=== PATIENT | female | born 1980 | race American Indian/Alaskan Native ===

== ENCOUNTER 2017-10-29 09:35 | Outpatient (CLI) | payer OTHER ==
--- NOTE | 2017-10-29 13:55 | XRay Report ---
XRAY RIGHT HAND THREE VIEWS: 10/29/17 09:35:00 CLINICAL: Right hand pain. FINDINGS: Avulsion fracture of the lateral corner at the base of the distal phalanx of the ring finger. Mild displacement of the fracture fragment. No other fracture. No foreign body or soft tissue air. The joint spaces are normal. IMPRESSION: Acute traumatic closed avulsion fracture at the base of the distal phalanx of the ring finger.
== END 2017-10-29 09:36 | disposition home or self-care (01) ==
LOC: SPVIMAG 09:35
PROVIDERS: ATTEND Orthopaedic Surgery Sports Medicine
DX: S62.634A Displaced fracture of distal phalanx of right ring finger, initial encounter for closed fracture (principal); X58.XXXA Exposure to other specified factors, initial encounter; Y93.89 Activity, other specified; Y92.89 Other specified places as the place of occurrence of the external cause; Y99.8 Other external cause status

== ENCOUNTER 2017-11-29 08:29 | Outpatient (CLI) | payer OTHER ==
--- NOTE | 2017-11-29 09:34 | XRay Report ---
Right hand: Pain. There is a slightly displaced avulsion fracture at the base on the ulnar side of the distal fourth phalanx. The remainder of the hand is unremarkable. Comparison to the prior exam of October 29 shows no significant change or evidence of healing. Impression: Fourth digit fracture with no interval change.
== END 2017-11-29 08:30 | disposition home or self-care (01) ==
LOC: SPVIMAG 08:29
PROVIDERS: ATTEND Orthopaedic Surgery Sports Medicine
DX: S52.691D Other fracture of lower end of right ulna, subsequent encounter for closed fracture with routine healing (principal); X58.XXXD Exposure to other specified factors, subsequent encounter

== ENCOUNTER 2018-01-09 09:27 | Outpatient (CLI) | payer OTHER ==
--- NOTE | 2018-01-09 10:09 | XRay Report ---
XRAY RIGHT HAND THREE VIEWS: 01/09/18 09:27:00 CLINICAL: Followup fracture. FINDINGS: A stable displaced avulsion fracture of the medial corner of the distal phalanx of the ring finger. The previous report incorrectly states that the fracture involves the lateral corner. No callus. The rest of the exam is unremarkable. IMPRESSION: No change. Chronic traumatic closed displaced avulsion fracture of the medial corner at the base of the distal phalanx of the ring finger.
== END 2018-01-09 09:28 | disposition home or self-care (01) ==
LOC: SPVIMAG 09:27
PROVIDERS: ATTEND Orthopaedic Surgery Sports Medicine
DX: S62.634A Displaced fracture of distal phalanx of right ring finger, initial encounter for closed fracture (principal); X58.XXXA Exposure to other specified factors, initial encounter; Y93.89 Activity, other specified; Y92.89 Other specified places as the place of occurrence of the external cause; Y99.8 Other external cause status

== ENCOUNTER 2019-11-06 10:45 | Outpatient (CLI) | payer OTHER ==
[2019-11-06 11:10] VITALS: BP 105/72
[2019-11-06] MEDS ORDERED: LACTATED RINGERS 1,000 ML IV SCH (12:00)
[2019-11-06] MEDS ORDERED: ACETAMINOPHEN 500 MG TAB PO ONE (12:07)
[2019-11-06 12:20] LABS: Bilirubin,Urine NEG (Negative); Blood,Urine NEG (Negative); Color,Urine Yellow (Yellow); Mucus,Urine FEW /HPF; Protein,Urine <15 mg/dL mg/dL (Negative); Urobilinogen,Urine < 2.0 mg/dL (<2.0)
--- NOTE | 2019-11-06 13:53 | Ultrasound Report ---
ULTRASOUND OBSTETRIC LIMITED INDICATION / CLINICAL INFORMATION: labor. TECHNIQUE: Transabdominal ultrasound imaging. COMPARISON: None available. FINDINGS: HEART RATE (beats per minute): 152 AMNIOTIC FLUID INDEX (cm) = 7.1 PRESENTATION: Cephalic. ADDITIONAL FINDINGS: The placenta is anterior, grade 2. No evidence for abruption or previa. IMPRESSION: No significant abnormality. Signer Name: Jaya Balderas Jr, MD Signed: 11/06/2019 1:49 PM Workstation Name: [id number]
== END 2019-11-06 16:19 | disposition home or self-care (01) ==
LOC: TRG 10:45
PROVIDERS: ATTEND Obstetrics & Gynecology
DX: O26.893 Other specified pregnancy related conditions, third trimester (principal); R10.31 Right lower quadrant pain; M54.5 Low back pain; M54.2 Cervicalgia; M25.519 Pain in unspecified shoulder; O60.03 Preterm labor without delivery, third trimester; O09.523 Supervision of elderly multigravida, third trimester; O24.419 Gestational diabetes mellitus in pregnancy, unspecified control; O99.513 Diseases of the respiratory system complicating pregnancy, third trimester; J45.909 Unspecified asthma, uncomplicated; Z3A.35 35 weeks gestation of pregnancy; V43.52XA Car driver injured in collision with other type car in traffic accident, initial encounter; Y93.89 Activity, other specified; Y92.89 Other specified places as the place of occurrence of the external cause; Y99.8 Other external cause status
CPT/HCPCS: 59025; 76815; 81001; 96360; 96361; J7120

== ENCOUNTER 2019-11-18 04:52 | Outpatient (CLI) | payer OTHER ==
[2019-11-18 05:15] VITALS: BP 107/68
[2019-11-18] MEDS ORDERED: LACTATED RINGERS 1,000 ML IV ONE (05:15)
[2019-11-18 05:53] LABS: Bacteria,Urine 1+ /HPF (Negative); Bilirubin,Urine NEG (Negative); Blood,Urine NEG (Negative); Color,Urine Yellow (Yellow); Mucus,Urine FEW /HPF; Protein,Urine <15 mg/dL mg/dL (Negative); Urobilinogen,Urine < 2.0 mg/dL (<2.0)
== END 2019-11-18 06:50 | disposition home or self-care (01) ==
LOC: TRG 04:52
PROVIDERS: ATTEND Obstetrics & Gynecology
DX: O62.9 Abnormality of forces of labor, unspecified (principal); O26.853 Spotting complicating pregnancy, third trimester; O99.513 Diseases of the respiratory system complicating pregnancy, third trimester; J45.909 Unspecified asthma, uncomplicated; O24.419 Gestational diabetes mellitus in pregnancy, unspecified control; O09.523 Supervision of elderly multigravida, third trimester; Z3A.36 36 weeks gestation of pregnancy
CPT/HCPCS: 59025; 81001; 96360; J7120

== ENCOUNTER 2019-11-18 19:14 | Inpatient (IN) | payer OTHER ==
[2019-11-18] MEDS ORDERED: TERBUTALINE 1 MG/1 ML INJ IVP PRN (22:36)
[2019-11-18] MEDS ORDERED: AMPICILLIN/NS 2 GM/100 ML 2 GM/100 ML BAG IV ONE (22:36)
[2019-11-18] MEDS ORDERED: TERBUTALINE 1 MG/1 ML INJ SUB-Q PRN (22:36)
[2019-11-18] MEDS ORDERED: ePHEDrine SULFATE 50 MG/1 ML INJ IV PRN (22:36)
[2019-11-18] MEDS ORDERED: DINOPROSTONE 10 MG VAG SUPP VG ONE (22:36)
[2019-11-18] MEDS ORDERED: MINERAL OIL 30 ML ORAL LIQD PO PRN (22:36)
--- NOTE | 2019-11-18 22:44 | History and Physical Report ---
History of Present Illness Date of examination: 11/18/19 (Sent from [facility] clinic for IOL dt low fluid) Date of admission: 11/18/19 19:16 Chief complaint: I was sent from the clinic today for an induction because they say the fluid around my baby is low. History of present illness: EDC Calculations LMP: 12/10/2019 EDC Confirmation: 12/10/2019 Gestational Age: 5 weeks Past History : 5 Term Births: 4 Premature Births: 0 Living Children: 4 Para: 4 Mult. Births: 0 Prev : 0 Aborta: 0 Elect. Ab: 0 Spont. Ab: 0 Ectopics: 0 Past Medical History: Reviewed history from 12/25/2011 and no changes required: Negative Past Medical History Past Surgical History: Reviewed history from 07/02/2016 and no changes required: 2 epidural steroids 2015 for injury Past Medical History Abnormal PAP: negative BRIANA Exposure: negative Infertility: negative Uterine Anomaly: negative Uterine Surgery (not C/S): negative Other Gynecologic Problems: negative Social Hx: Patient is Pt states she has sex only once or twice a year. Smoking History: Patient has never smoked. Infection History Hx of STD: chlamydia HIV Risk Eval: low risk Hepatitis B Risk Eval: low risk Personal hx. of genital herpes: no Partner hx. of genital herpes: no Rash, Viral, or Febrile illness since last LMP? no Varicella/Chicken Pox Status: Previous Disease TB Risk: no Genetic History ADVANCED MATERNAL AGE Congenital Heart Defect: Mom: no Dad: unknown Clyde Disease: Mom: no Dad: unknown Thalassemia Mom: no Dad: unknown Neural Tube Defect Mom: no Dad: unknown Down's Syndrome Mom: no Dad: unknown Michael-Sachs Mom: no Dad: unknown Sickle Cell Disease/Trait Mom: no Dad: unknown Hemophilia Mom: no Dad: unknown Muscular Dystrophy Mom: no Dad: unknown Cystic Fibrosis Mom: no Dad: unknown [place] Chorea Mom: no Dad: unknown Mental Retardation Mom: no Dad: unknown Fragile X Mom: no Dad: unknown Other Genetic/Chromosomal Disorder Mom: no Dad: unknown Child w/other defect Mom: no Dad: unknown Comments/Counseling: Pt states FOB is much older and to her knowledge has never fathered a child Enviromental Exposures Xray Exposure: no Medication, drug, or alcohol use since LMP: no Chemical/Other Exposure: no Exposure to Cat Liter: no Hx of Parvovirus (Fifth Disease): no Occupational Exposure to Children: none Active Medications (reviewed today): PROBIOTICS () CALCIUM TABS () VITAMIN D TABS () Current Allergies (reviewed today): AMOXICILLIN (Critical) Past History Past Medical History: no pertinent history Past Surgical History: no surgical history Family/Genetic History: none Social history: no significant social history - Obstetrical History Expected Date of Delivery: 12/10/19 Actual Gestation: 37 Week(s) 0 Day(s) : 5 Para: 4 Hx # Term Pregnancies: 4 Number of Pregnancies: 0 Spontaneous Abortions: 0 Induced : 0 Number of Living Children: 4 Medications and Allergies Allergies Allergy/AdvReac Type Severity Reaction Status Date / Time amoxicillin AdvReac Severe Hives Verified 11/18/19 04:57 Active Meds: Active Medications Dinoprostone (Cervidil) 10 mg VG ONCE ONE Stop: 11/18/19 22:37 Ephedrine Sulfate (Ephedrine Sulfate) 10 mg IV Q2M PRN PRN Reason: Hypotension Fentanyl (Sublimaze) 100 mcg IV Q2H PRN PRN Reason: Labor Pain Oxytocin/Sodium Chloride (Pitocin/Ns 20 Unit/1000ml Drip) 20 units in 1,000 mls @ 125 mls/hr IV DIRECT CHANO Lactated Ringer's (Lactated Ringers) 1,000 mls @ 125 mls/hr IV DIRECT CHANO Ampicillin Sodium (Ampicillin/Ns 2 Gm/100 Ml) 2 gm in 100 mls @ 100 mls/hr IV ONCE ONE; Protocol Stop: 11/18/19 23:35 Ampicillin Sodium (Ampicillin/Ns 1 Gm/50 Ml) 1 gm in 50 mls @ 100 mls/hr IV Q4HR CHANO; Protocol Mineral Oil (Mineral Oil) 30 ml PO QHS PRN PRN Reason: Constipation Terbutaline Sulfate (Brethine) 0.25 mg SUB-Q ONCE PRN PRN Reason: Hyperstimulation/Hypertonicity Terbutaline Sulfate (Brethine) 0.25 mg IVP ONCE PRN PRN Reason: Hyperstimulation/Hypertonicity - Vital Signs Vital signs: Vital Signs Temp Resp 98.7 F 18 11/18/19 20:31 11/18/19 20:31 Temp Pulse Resp BP Pulse Ox 98.7 F 77 18 111/73 11/18/19 20:31 11/18/19 22:01 11/18/19 20:31 11/18/19 22:01 - Physical Exam Breasts: Positive: deferred Cardiovascular: Regular rate, Normal S1, Normal S2 Lungs: Positive: Normal air movement Abdomen: Positive: normal appearance Genitourinary (Female): Positive: normal external genitalia, normal perenium Vulva: both: normal Vagina: Positive: normal moisture Uterus: Positive: normal size, normal contour Anus/Rectum: Positive: normal perianal skin, heme negative. Negative: rectal mass, hemorrhoids Extremities: Deep Tendon Reflex Grade: Normal +2 - Obstetrical FHR: auscultation normal Uterine Contraction Monitor Mode: External Cervical Dilatation: 1 Cervical Effacement Percentage: 40 station: -3 Uterine Contraction Pattern: Irregular Uterine Tone Measurement Phase: Resting Uterine Contraction Intensity: Mild Results Result Diagrams: 11/18/19 20:52 All other labs normal. GBS Positive HBsAg Screen Negative Negative *1 RPR Non Reactive Non Reactive *2 Rubella Antibodies, IgG 1.83 index Immune >0.99 *3 Non-immune <0.90 Equivocal 0.90 - 0.99 Immune >0.99 ABO Grouping O *4 Rh Factor Positive *5 Please note: Prior records for this patient's ABO / Rh type are not available for additional verification. Antibody Screen Negative Negative *6 WBC [H] 13.9 x10E3/uL 3.4-10.8 *7 RBC 4.34 x10E6/uL 3.77-5.28 *8 Hemoglobin 13.0 g/dL 11.1-15.9 *9 Hematocrit 40.0 % 34.0-46.6 *10 MCV 92 fL 79-97 *11 MCH 30.0 pg 26.6-33.0 *12 MCHC 32.5 g/dL 31.5-35.7 *13 RDW 14.1 % 12.3-15.4 *14 Platelets 294 x10E3/uL 150-450 *15 Neutrophils 76 % Not Estab. *16 Lymphs 19 % Not Estab. *17 Monocytes 4 % Not Estab. *18 Eos 1 % Not Estab. *19 Basos 0 % Not Estab. *20 ! Immature Cells <No Reported Value> *21 Neutrophils (Absolute) [H] 10.7 x10E3/uL 1.4-7.0 *22 Lymphs (Absolute) 2.6 x10E3/uL 0.7-3.1 *23 Monocytes(Absolute) 0.5 x10E3/uL 0.1-0.9 *24 Eos (Absolute) 0.1 x10E3/uL 0.0-0.4 *25 Baso (Absolute) 0.0 x10E3/uL 0.0-0.2 *26 ! Immature Granulocytes 0 % Not Estab. *27 ! Immature Grans (Abs) 0.0 x10E3/uL 0.0-0.1 *28 ! NRBC <No Reported Value> *29 Hematology Comments: Note: *30 Verified by microscopic examination. Tests: (2) Panel 257132 ([id number]) HIV Screen 4th Generation wRfx Non Reactive Non Reactive *31 Tests: (3) HCV Ab w/Rflx to Verification (000280) ! HCV Ab <0.1 s/co ratio 0.0-0.9 *32 Tests: (4) Comment: (803175) ! Comment: SPRCS *33 Non reactive HCV antibody screen is consistent with no HCV infection, unless recent infection is suspected or other evidence exists to indicate HCV infection. Tests: (5) Urine Culture, Routine (812029) Urine Culture, Routine Final report *34 Tests: (6) Result (172170) ! Result 1 No growth *35 Assessment and Plan A: 39 y.o. @ 37 wks sent from high risk clinic d/t Oligohydraminos. GBS positive. P: Admit to L&D for IOL. Clindamycin (pt allergic to amoxicillin) for GBS prophylaxis when in active labor. Check blood glucose q 6 hrs. Insulin (low dose) and hypoglycemia protocol. Cervidil placement for cervical ripening. Plan discussed with Dr. Morales.
[2019-11-18] MEDS ORDERED: OXYTOCIN 20 UNIT/1000ML DRIP 20 UNITS/1,000 ML BAG IV SCH (23:00)
[2019-11-18] MEDS ORDERED: LACTATED RINGERS 1,000 ML IV SCH (23:00)
[2019-11-18 23:06] LABS: Hematocrit 37.2 % (30.3-42.9); Hemoglobin 12.7 gm/dl (10.1-14.3); Mean Corpuscular HGB Conc 34 % (30-34); Mean Corpuscular Volume 93 fl (79-97); Platelet Count 215 K/mm3 (140-440); Red Cell Distribution Width 14.5 % (13.2-15.2)
[2019-11-19] MEDS ORDERED: DEXTROSE 50% IN WATER (25GM) 50 ML SYRINGE IV PRN (01:05)
[2019-11-19] MEDS ORDERED: AMPICILLIN/NS 1 GM/50 ML 1 GM/50 ML BAG IV SCH (02:00)
[2019-11-19] MEDS ORDERED: DEXMEDETOMIDINE 200 MCG/2 ML VIAL IV ONE ×2 (05:20→07:51)
[2019-11-19] MEDS: fentaNYL 100 MCG/2 ML INJ IV PRN ×2 (05:33→06:46)
--- NOTE | 2019-11-19 06:22 | Progress Note ---
Assessment and Plan pt crying out with pain CTX Q1min Cervidil pulled SVE 3,70,-1 Internals placed Minimal clear fluid Pt vomiting with each ctx. Clindimycin started Zofran 4mg IV. Tachysystole Terb subq given Dr Morales made aware of pt status. Subjective - Subjective Date of service: 11/19/19 (req to room by RN) Principal diagnosis: IUP@37w0d for IOL Oligo, GDM Patient reports: movement normal, contractions Objective - Vital Signs Vital Signs: Vital Signs - 12hr 11/18/19 11/18/19 11/19/19 20:31 22:01 00:02 Temperature 98.7 F Pulse Rate 77 92 H Respiratory 18 Rate Blood Pressure 111/73 110/70 11/19/19 11/19/19 11/19/19 01:01 02:04 03:02 Temperature Pulse Rate 83 80 75 Respiratory Rate Blood Pressure 88/52 136/76 97/59 11/19/19 11/19/19 04:02 05:02 Temperature Pulse Rate 80 87 Respiratory Rate Blood Pressure 93/52 106/67 - Exam Breasts: deferred Cardiovascular: Regular rate Lungs: Normal air movement Abdomen: Present: normal appearance, soft. Absent: distention, tenderness Vulva: both: normal Uterus: Present: normal FHR: auscultation normal, category 2 (deep variable when positioned supine for internals Resolved with position chg Cat 1 now) Uterine Contraction Monitor Mode: Internal Cervical Dilatation: 3 (Internals placed) Cervical Effacement Percentage: 70 (minimal clear fluid) station: -1 Uterine Contraction Pattern: Regular (cervidil removed) Uterine Tone Measurement Phase: Resting Uterine Contraction Intensity: Moderate Extremities: normal Deep Tendon Reflex Grade: Normal +2 - Labs Labs: Abnormal Labs 11/19/19 02:09 POC Glucose 136 H Laboratory Results - last 24 hr 11/18/19 11/18/19 11/19/19 20:52 20:52 01:55 WBC 10.6 RBC 4.00 Hgb 12.7 Hct 37.2 MCV 93 MCH 32 MCHC 34 RDW 14.5 Plt Count 215 POC Glucose Syphilis IgG Antibody Non-reactive Blood Type O POSITIVE Antibody Screen Negative 11/19/19 02:09 WBC RBC Hgb Hct MCV MCH MCHC RDW Plt Count POC Glucose 136 H Syphilis IgG Antibody Blood Type Antibody Screen
[2019-11-19] MEDS ORDERED: ONDANSETRON 4 MG/2 ML INJ ONE (06:42)
[2019-11-19] MEDS ORDERED: ONDANSETRON 4 MG/2 ML INJ IV ONE (06:48)
[2019-11-19] MEDS ORDERED: INSULIN REGULAR, HUMAN 100 UNITS/1 ML SUB-Q SCH (07:30)
[2019-11-19] MEDS ORDERED: ePHEDrine SULFATE 50 MG/1 ML INJ IV PRN (07:43)
[2019-11-19] MEDS ORDERED: NALOXONE 2 MG/2 ML INJ IV PRN (07:43)
[2019-11-19] MEDS ORDERED: fentaNYL-BUPIV 2 MCG/ML-0.125% 200 MCG/100 ML BAG EPIDURAL SCH (08:00)
[2019-11-19] MEDS ORDERED: SODIUM CHLORIDE 0.9% 1000 ML 1,000 ML VG SCH (08:00)
[2019-11-19] MEDS ORDERED: OXYTOCIN DRIP 30 UNITS/500 ML BAG IV SCH (09:30)
--- NOTE | 2019-11-19 11:40 | Procedure Note ---
OB Delivery Note - Delivery Date of Delivery: 11/19/19 [employer]person [employer] Equipment: FRANCES GROVES Estimated blood loss: 300cc - Vaginal Delivery presentation: vertex Delivery position: OA Intrapartum events: other(please specify) (oligo and GDM) Delivery induction: cervidil Delivery augmentation: pitocin Delivery monitor: internal FHT, internal uterine Route of delivery: Delivery placenta: manual (manual removal Noted to be complete), adherent Episiotomy: none Delivery laceration: none Anesthesia: epidural Delivery comments: called urgently to room for delivery; KAREN present; Temp prior to del 98.2 foul odor noted; Placenta to pathology; Will cont. PP ABX X 2 doses live born female over intact perineum, CAN X 1 reduced. To mom's abdomen Cord blood obtained. Placenta manually removed fluid dark with foul odor. Pit IVFs. 8/9, EBL 300, Wgt 6-5. Mom and baby remain LDR stable. - Infant A at 1 minute: 8 at 5 minutes: 9 Infant Gender: Female (wgt 6-5)
[2019-11-19] MEDS ORDERED: PROMETHAZINE 25 MG TAB PO PRN (12:00)
[2019-11-19] MEDS ORDERED: WITCH HAZEL/ GLYCERIN PAD TP PRN (12:00)
[2019-11-19] MEDS ORDERED: ONDANSETRON 4 MG/2 ML INJ IV PRN (12:00)
[2019-11-19] MEDS ORDERED: LANOLIN/ZINC/DIMETHICONE (LANSINOH) 7 GM TP PRN (12:00)
[2019-11-19] MEDS ORDERED: diphenhydrAMINE 25 MG CAP PO PRN (12:00)
[2019-11-19] MEDS ORDERED: ACETAMINOPHEN 325 MG TAB PO PRN (12:00)
[2019-11-19] MEDS: CLINDAMYCIN 600 MG/50 mL 600 MG/50 ML BAG IV SCH ×2 (12:54→21:44)
[2019-11-19] MEDS: IBUPROFEN 600 MG TAB PO SCH (18:12)
[2019-11-19] MEDS ORDERED: MAGNESIUM HYDROXIDE (MOM) ORAL LIQD UDC PO PRN (22:00)
[2019-11-20 00:51] LABS: Hematocrit 33.2 % (30.3-42.9); Hemoglobin 11.4 gm/dl (10.1-14.3)
[2019-11-20] MEDS: IBUPROFEN 600 MG TAB PO SCH ×3 (01:14→23:03)
[2019-11-20] MEDS ORDERED: TETANUS,DIPH,PERTUSS(ACELL) VACCINE 0.5 ML SYRINGE IM ONE (06:00)
--- NOTE | 2019-11-20 08:59 | Progress Note ---
Assessment and Plan patient doing well, no complaints. Lochia scant, fundus firm, VSSAF, H&H 11.4/33.2. pt desires d/c home tomorrow. - Patient Problems (1) Spontaneous vaginal delivery Current Visit: Yes Status: Acute Plan to address problem: Continue pathway d/c home tomorrow Subjective - Subjective Date of service: 11/20/19 Principal diagnosis: day #1 s/p Patient reports: appetite normal, voiding normally, pain well controlled, ambulating normally, no dizzy ambulation, no nauseated [place]: doing well, bottle feeding Objective - Vital Signs Latest vital signs: Vital Signs Temp Pulse Resp BP BP Pulse Ox 11/19/19 23:54 97.5 F L 71 20 94/56 98 11/19/19 21:10 97.6 F 78 20 100/53 97 11/19/19 18:07 98.3 F 72 16 98/62 98 11/19/19 15:58 87 97 11/19/19 15:53 74 98 11/19/19 15:48 73 98 11/19/19 15:43 73 98 11/19/19 15:38 90 98 11/19/19 15:33 74 97 11/19/19 15:28 72 97 11/19/19 15:23 82 98 11/19/19 15:18 78 98 11/19/19 15:13 78 98 11/19/19 15:08 82 99 11/19/19 15:03 78 97 11/19/19 14:58 72 97 11/19/19 14:53 89 97 11/19/19 14:48 79 97 11/19/19 14:43 79 97 11/19/19 14:41 98.9 F 78 18 100/60 96 11/19/19 14:38 78 96 11/19/19 14:33 75 95 11/19/19 14:28 81 96 11/19/19 14:08 83 100/60 11/19/19 14:07 83 98 11/19/19 13:53 82 104/59 11/19/19 13:38 87 98/58 11/19/19 13:23 100/58 11/19/19 13:08 76 99/54 11/19/19 12:53 75 100/56 11/19/19 12:38 79 100/58 11/19/19 12:23 77 93/50 11/19/19 12:09 83 91/54 11/19/19 11:38 86 97/51 11/19/19 11:22 86 103/58 11/19/19 11:17 85 109/59 11/19/19 11:12 83 107/58 11/19/19 11:07 84 106/58 11/19/19 11:03 96 H 155/57 11/19/19 10:59 118 H 100 11/19/19 10:58 87 114/61 11/19/19 10:54 92 H 100 11/19/19 10:53 85 106/53 11/19/19 10:49 91 H 100 11/19/19 10:47 68 108/57 11/19/19 10:44 75 100 11/19/19 10:40 75 82/45 11/19/19 10:39 71 100 11/19/19 10:34 72 100 11/19/19 10:33 98.0 F 70 18 103/57 100 11/19/19 10:29 84 100 11/19/19 10:24 74 100 11/19/19 10:19 80 97 11/19/19 10:18 74 103/57 11/19/19 10:14 78 99 11/19/19 10:09 87 98 11/19/19 10:04 90 99 11/19/19 09:59 85 122/61 100 11/19/19 09:54 78 100 11/19/19 09:49 90 100 11/19/19 09:44 87 100 11/19/19 09:41 93 H 95/51 11/19/19 09:40 98 H 82 L 11/19/19 09:39 87 100 11/19/19 09:34 117 H 100 11/19/19 09:29 83 100 11/19/19 09:24 98 H 100 11/19/19 09:19 94 H 100 11/19/19 09:18 86 100/53 11/19/19 09:14 66 100 11/19/19 09:09 85 100 11/19/19 09:04 66 100 11/19/19 08:59 86 104/47 100 Intake and Output 11/19/19 11/20/19 11/20/19 23:59 07:59 15:59 Intake Total 960 360 Output Total 800 400 Balance 160 -40 Intake: Oral 960 360 Output: Urine 800 400 Void 800 400 Other: Total, Intake Amount 960 120 Total, Output Amount 400 400 # Voids Void 1 1 - Exam Breasts: Present: normal Cardiovascular: Present: Regular rate Lungs: Present: Clear to auscultation, Normal air movement Abdomen: Present: normal appearance, soft Vulva: both: normal Uterus: Present: normal, firm, fundal height below umbilicus Extremities: Present: normal Deep Tendon Reflex Grade: Normal +2 - Labs Labs: Abnormal lab results 11/20/19 11/20/19 Range/Units 01:25 07:13 POC Glucose 129 H 123 H (70-105)
[2019-11-20] MEDS ORDERED: MEASLES, MUMPS & RUBELLA 12,500 UNIT/0.5 ML VACCINE SUB-Q ONE (11:00)
[2019-11-20] MEDS: PRENATAL VIT27-FE FUMARATE-FOLIC ACID VIT TAB PO SCH (11:07)
[2019-11-20] MEDS: DOCUSATE SODIUM 100 MG CAP PO SCH ×2 (11:07→23:03)
--- NOTE | 2019-11-20 17:47 | Post Anesthesia Evaluation ---
- Post Anesthesia Evaluation Patient Participated: Yes Airway Patent: Yes Stable Respiratory Function: Yes Nausea/Vomiting: No Temp > 96.8F: Yes Pain Manageable: Yes Adequeate Hydration: Yes Anesthesia Complications: No Block Receding Appropriately: Yes Patient on Ventilator: No
--- NOTE | 2019-11-21 08:45 | Discharge Summary ---
Providers - Providers Date of Admission: 11/18/19 19:16 Date of discharge: 11/21/19 (pt desires d/c) Attending physician: VIVIANA MAIER Primary care physician: VIVIANA MAIER Hospitalization Reason for admission: active labor, IUP at term Delivery: Episiotomy: none Laceration: none Other procedures: none complications: none Discharge diagnosis: IUP at term delivered [place] baby: female Hospital course: uncomplicated vaginal delivery Pt resting No c/o voiced Desires d/c today VSS FF below umb Lochia small perineum intact H&H stable No s/sx of anemia Doing well s/p vag delivery P: d/c today with instructions RTO 4 weeks Condition at discharge: Good Disposition: DC-01 TO HOME OR SELFCARE - Discharge Diagnoses (1) Spontaneous vaginal delivery Status: Acute Comment: RTO 4 weeks PP care Plan - Provider Discharge Summary Activity: routine, no sex for 6 weeks, no heavy lifting 4 weeks, no strenuous exercise Diet: routine Instructions: routine Additional instructions: [] Smoking cessation referral if applicable(refer to patient education folder for contact #) [] Refer to [facility]'s [facility] Booklet Call your doctor immediately for: * Fever > 100.5 * Heavy vaginal bleeding ( >1 pad per hour) * Severe persistent headache * Shortness of breath * Reddened, hot, painful area to leg or breast * Drainage or odor from incision. * Keep incision clean and dry at all times and follow doctor's instructions regarding bathing/showering - Follow up plan Follow up: VIVIANA MAIER MD [Primary Care Provider] - 12/21/19 (Congratulations! Please call [phone] to schedule your visit in 4 weeks. Take Motrin/Tylenol for cramping/pain. Call with concerns.)
[2019-11-21] MEDS: DOCUSATE SODIUM 100 MG CAP PO SCH (10:05)
[2019-11-21] MEDS: IBUPROFEN 600 MG TAB PO SCH (10:05)
[2019-11-21] MEDS: PRENATAL VIT27-FE FUMARATE-FOLIC ACID VIT TAB PO SCH (10:05)
[2019-11-21 13:19] VITALS: BP 118/76
== END 2019-11-21 16:30 | disposition home or self-care (01) | DRG 775 ==
LOC: TRG 19:14 → LD 19:16 → OB 11-19 16:35
PROVIDERS: ADMIT Obstetrics & Gynecology; ATTEND Obstetrics & Gynecology
PROC: 10E0XZZ Delivery of Products of Conception, External Approach (ICD-10-PCS; principal; 2019-11-19)
PROC: 3E0P7VZ Introduction of Hormone into Female Reproductive, Via Natural or Artificial Opening (ICD-10-PCS; 2019-11-19)
PROC: 3E0R3BZ Introduction of Anesthetic Agent into Spinal Canal, Percutaneous Approach (ICD-10-PCS; 2019-11-19)
PROC: 00HU33Z Insertion of Infusion Device into Spinal Canal, Percutaneous Approach (ICD-10-PCS; 2019-11-19)
PROC: 3E0234Z Introduction of Serum, Toxoid and Vaccine into Muscle, Percutaneous Approach (ICD-10-PCS; 2019-11-20)
PROC: 3E0134Z Introduction of Serum, Toxoid and Vaccine into Subcutaneous Tissue, Percutaneous Approach (ICD-10-PCS; 2019-11-20)
DX: O41.03X0 Oligohydramnios, third trimester, not applicable or unspecified (principal); O99.824 Streptococcus B carrier state complicating childbirth; O24.429 Gestational diabetes mellitus in childbirth, unspecified control; Z3A.37 37 weeks gestation of pregnancy; Z37.0 Single live birth; Z88.3 Allergy status to other anti-infective agents; Z23 Encounter for immunization
CPT/HCPCS: 36415; 59200; 82962; 85014; 85018; 85027; 86592; 86850; 86900; 86901; 88307; 96360; 96361; 96365; 96366; G0378; A6250; J2405; J2590; J3010; J3105; J3490; J7030; J7120

== ENCOUNTER 2020-03-15 06:01 | Day surgery (SDC) | payer OTHER ==
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
[2020-03-15] MEDS ORDERED: BACTERIOSTATIC SODIUM CHLORIDE 0.9% 30 ML VIAL INFILTRATI ONE (06:47)
[2020-03-15] MEDS ORDERED: ONDANSETRON 4 MG/2 ML INJ IV PRN (07:01)
--- NOTE | 2020-03-15 07:02 | Anesthesia Day of Surgery ---
Anesthesia Day of Surgery - Day of Surgery Patient Examined: Yes Patient H&P Reviewed: Yes Patient is NPO: Yes
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
[2020-03-15 07:06] LABS: Hematocrit 36.2 % (30.3-42.9); Hemoglobin 12.5 gm/dl (10.1-14.3)
[2020-03-15] MEDS ORDERED: ACETAMINOPHEN 500 MG TAB PO NR (07:06)
[2020-03-15] MEDS ORDERED: BUPIVACAINE/PF (0.5%) 5 MG/1 ML 30 ML VIAL INFILTRATI ONE ×2 (07:31→08:13)
[2020-03-15] MEDS ORDERED: GLYCOPYRROLATE 0.4 MG/2 ML INJ ONE ×2 (07:38→07:39)
[2020-03-15] MEDS ORDERED: LIDOCAINE MPF (2%) 20 MG/1 ML VIAL 5 ML ONE (07:38)
[2020-03-15] MEDS ORDERED: ONDANSETRON 4 MG/2 ML INJ ONE (07:38)
[2020-03-15] MEDS ORDERED: ROCURONIUM 50 MG/5 ML INJ IV ONE (07:38)
[2020-03-15] MEDS ORDERED: PHENYLEPHRINE/NS 1,000 MCG/10 ML SYRINGE (OR USE) IV ONE (07:38)
[2020-03-15] MEDS ORDERED: fentaNYL 100 MCG/2 ML INJ ONE (07:38)
[2020-03-15] MEDS ORDERED: SUCCINYLCHOLINE CHLORIDE 200 MG/10 ML INJ MDV ONE (07:38)
[2020-03-15] MEDS ORDERED: NEOSTIGMINE 10MG/10 ML INJ MDV ONE (07:38)
[2020-03-15] MEDS ORDERED: propofoL 200 MG/20 ML VIAL IV ONE (07:39)
[2020-03-15] MEDS ORDERED: CELECOXIB 200 MG CAP PO NR (08:00)
[2020-03-15] MEDS ORDERED: MIDAZOLAM 2 MG/2 ML INJ IV NR (08:00)
[2020-03-15] MEDS ORDERED: LACTATED RINGERS 1,000 ML IV SCH (08:00)
[2020-03-15] MEDS ORDERED: HYDROmorphone 1 MG/1 ML INJ ONE (08:06)
[2020-03-15] MEDS ORDERED: SODIUM CHLORIDE 0.9% IRR 1,500 ML BOTTLE IR ONE (08:14)
[2020-03-15] MEDS ORDERED: SUGAMMADEX SODIUM 200 MG/2 ML VIAL IV ONE (08:28)
--- NOTE | 2020-03-15 08:51 | Operative Report ---
Operative Report Operative Report: Pre-operative diagnosis: Patient desires permanent sterilization Post-operative diagnosis: Same Procedure name(s): Laparoscopic bilateral tubal ligation with Falope-Rings Surgeon: Waldemar Arroyo MD Mixing Machine Tender: [] Anesthesia: General endotracheal EBL: Minimal Complications: None Findings: Patient with uterus approximately 8 weeks in size with normal fallopian tubes bilaterally Specimen(s): None Patient was brought in the operating room. General anesthesia was induced without difficulty. She was placed in dorsal lithotomy position. Prepped and draped in usual sterile manner. Her urinary bladder with was emptied with a red rubber catheter. Speculum placed in her vagina and Sargis uterine manipulator was placed for uterine manipulation. Attention was then switched to the patient's abdomen. An infra-umbilical incision was made with a scalpel. This incision was spread with a hemostat. A 5 mm trocar was placed in this incision while lifting high the abdominal wall. Intra-abdominal presence was verified directly with the laparoscope. The patient was then insufflated to approximately 3 L of CO2 gas. The patient's findings as noted above. An accessory puncture was made suprapubically. The 8 mm trocar was placed through this incision under direct visualization with no evidence of internal organ damage. Each of the fallopian tube were identified by its fimbriated end. A portion approximately 1-2 cm from each cornua was grasped with the Falope ring applicator. Falope-Rings were placed without any difficulty bilaterally. At this time all instruments were removed. The patient was deinsufflated. The skin incisions were closed subcuticular with 4-0 Vicryl. Marcaine was given subcuticularly for postoperative pain relief. The patient tolerated procedure well. She was awakened in the operating room and accompanied to the recovery room in good condition.
--- NOTE | 2020-03-15 08:54 | Short Stay Summary ---
Short Stay Documentation Date of service: 03/15/20 - History H&P: dictated Past Medical History: other (SEE HPI) Past Surgical History: Other (SEE HPI) Social history: full code (SEE HPI) - Allergies and Medications Current Medications: Allergies amoxicillin Adverse Reaction (Severe, Verified 03/08/20 15:25) Hives rash Home Medications Medication Instructions Recorded Confirmed Last Taken Type Ergocalciferol [Vitamin D2] 1 cap PO QWEEK 03/08/20 03/15/20 03/08/20 09:00 History 21/Iron Fu/Folic Acid 1 each PO DAILY 03/08/20 03/15/20 03/13/20 09:00 History [ Complete Caplet] RX: oxyCODONE /ACETAMINOPHEN 1 - 2 tab PO Q6HR PRN #20 tablet 03/15/20 Unknown Rx [Percocet 5/325 mg] Active Medications Acetaminophen (Tylenol) 1,000 mg PO ONCE NR Stop: 03/15/20 23:59 Last Admin: 03/15/20 07:10 Dose: 1,000 mg Documented by: Celecoxib (Celebrex) 200 mg PO PREOP NR Stop: 03/15/20 23:59 Last Admin: 03/15/20 07:10 Dose: 200 mg Documented by: Hydromorphone HCl (Dilaudid) 0.5 mg IV Q10MIN PRN PRN Reason: Pain , Severe (7-10) Stop: 03/15/20 23:59 Lactated Ringer's (Lactated Ringers) 1,000 mls @ 125 mls/hr IV DIRECT CHANO Last Admin: 03/15/20 07:25 Dose: 125 mls/hr Documented by: Midazolam HCl (Versed) 2 mg IV PREOP NR Stop: 03/15/20 23:59 Last Admin: 03/15/20 07:27 Dose: 2 mg Documented by: Ondansetron HCl (Zofran) 4 mg IV ONCE PRN PRN Reason: Nausea And Vomiting Stop: 03/15/20 23:59 - Physical exam General appearance: no acute distress, well-nourished Integumentary: no rash HEENT: Atraumatic Lungs: Normal air movement Breasts: deferred Heart: Regular rate Gastrointestinal: normal, distended (Slightly) Female Genitourinary: deferred Rectal Exam: deferred Extremities: no ischemia - Brief post op/procedure progress note Date of procedure: 03/15/20 (See dictated operative note) - Hospital course Hospital course: Patient was admitted underwent the above him procedure without any complications. Patient will be discharged with follow-up in office in 1-2 weeks for postop check. - Disposition Condition at discharge: Good Disposition: DC-01 TO HOME OR SELFCARE - Discharge Diagnoses (1) Encounter for sterilization Status: Acute (2) Chronic back pain Status: Chronic Qualifiers: Back pain location: back pain in unspecified location Back pain laterality: unspecified Qualified Code(s): M54.9 - Dorsalgia, unspecified; G89.29 - Other chronic pain Short Stay Discharge Plan Activity: advance as tolerated Diet: regular Wound: open to air Additional Instructions: Patient office for fever chills nausea vomiting or pain uncontrolled by pain relief. Follow up with: MARK MITCHELL MD [Primary Care Provider] - 7 Days Prescriptions: RX: oxyCODONE /ACETAMINOPHEN [Percocet 5/325 mg] 1 - 2 tab PO Q6HR PRN #20 tablet PRN Reason: Pain, Moderate
[2020-03-15] MEDS: HYDROmorphone 1 MG/1 ML INJ IV PRN ×2 (08:57→09:10)
[2020-03-15 11:12] VITALS: BP 119/84
--- NOTE | 2020-03-15 11:45 | Post Anesthesia Evaluation ---
- Post Anesthesia Evaluation Patient Participated: Yes Airway Patent: Yes Stable Respiratory Function: Yes Nausea/Vomiting: No Temp > 96.8F: Yes Pain Manageable: Yes Adequeate Hydration: Yes Anesthesia Complications: No Block Receding Appropriately: Not Applicable Patient on Ventilator: No
== END 2020-03-15 06:02 | disposition home or self-care (01) ==
LOC: OR 06:01
PROVIDERS: ATTEND Obstetrics & Gynecology
DX: Z30.2 Encounter for sterilization (principal); J45.909 Unspecified asthma, uncomplicated; Z88.6 Allergy status to analgesic agent; Z79.899 Other long term (current) drug therapy; Z98.890 Other specified postprocedural states; Z86.2 Personal history of diseases of the blood and blood-forming organs and certain disorders involving the immune mechanism; Z80.8 Family history of malignant neoplasm of other organs or systems
CPT/HCPCS: 36415; 58671; 81025; 85014; 85018; J0330; J1170; J2250; J2370; J2405; J2704; J2710; J3010; J7120